=== PATIENT | male | born 1955 | race Caucasian/White ===

== ENCOUNTER → 2019-07-02 | Outpatient (CLI) | payer OTHER ==
[~2019-07-02] VITALS: Ht 175.3 cm; Wt 102.1 kg
[~2019-07-02] MED LIST: MULTIVITAMINS1 EAC7 PO; VITAMIN C500 M2 PO; VITAMIN D325 MC3 PO
--- NOTE | 2019-07-02 15:08 | P ---
[facility] [place] [address] PROCEDURE REPORT Name: CAROLIN RAE Room #: REG [facility]#: [id number] Admission: 07/02/19 Attend Phys: Rafael Logan MD Discharge: Date of : 59 Report #: [id number] THIS REPORT FOR: cc: Gavino Mejia MD, George MD Thesing,Rafael Campbell MD ~ CC: Gavino Mera MD DATE OF SERVICE: 07/02/2019 BRIEF HISTORY: The patient is a 63-year-old male for average risk screening colonoscopy. His last colonoscopy was in 2001 and he reports he was found to have diverticular disease. PREOPERATIVE DIAGNOSIS: Average risk screening colonoscopy. POSTOPERATIVE DIAGNOSES: 1. Multiple colon polyps. 2. Diverticulosis coli. 3. External hemorrhoidal tags. MEDICATIONS: Deep sedation with propofol per Anesthesia. SPECIMENS: 1. Proximal ascending colon polyps x 3. 2. Polyp at 60 cm. 3. Polyp at 30 cm. 4. Rectal polyps x 5. ESTIMATED BLOOD LOSS: 3 mL. PROCEDURE: Colonoscopy to cecum and terminal ileum with snare polypectomy and biopsy. FINDINGS: Prior to propofol sedation, procedure of colonoscopy discussed with the patient as well as potential risks and its complications. He indicates he understands and desires to proceed. DESCRIPTION OF PROCEDURE: With the patient in left lateral decubitus position, digital examination was completed, which revealed no abnormalities. Subsequently, the Olympus video colonoscope was introduced into the rectum, advanced under direct vision to the cecum. Done with minimal difficulty. Cecum was identified by the ileocecal valve and the appendiceal orifice. I was able [facility] [address] [place] [address] PROCEDURE REPORT Name: CAROLIN RAE Room #: REG [facility].#: [id number] Admission: 07/02/19 Attend Phys: Rafael Logan MD Discharge: Date of : 59 Report #: [id number] to visualize the distal segment of the terminal ileum, which was inspected and noted to be unremarkable. At that point, the scope was slowly withdrawn and careful circumferential views were obtained. The prep was excellent. Mucosa was within normal limits, normal vascular pattern, and normal light reflex. As we withdrew the scope, he was noted to have 3 diminutive polyps in the proximal ascending colon, all removed by cold biopsy forceps. Scope was further withdrawn and at 60 cm, a linear polyp of about 2 x 45 mm was seen and removed by cold snare polypectomy. I also might add there were a few scattered diverticula in proximal colon. The scope was further withdrawn and he was noted to have moderate sigmoid diverticular disease without endoscopic evidence of diverticulitis. At 30 cm, there was a polyp on a long stalk. The polyp was tubular in configuration; it was probably 8-10 mm in width and about 15-20 mm in length. It was removed without difficulty with hot snare polypectomy. Inspection of the polypectomy site revealed that a total polypectomy had been completed. There was good hemostasis and no blood was seen. The polypectomy site was momentarily observed for bleeding and none was identified. Scope was further withdrawn and in the rectum, there were a total of 5 polyps. The largest was no more than 5 mm. Four removed with a cold snare. One was removed with biopsy forceps. Upon retroflexion, no additional abnormalities were seen. In addition, the patient reports that he was told by his physician that he had a freckle on a hemorrhoid. Examination of the perianal area reveals external hemorrhoidal tags below the dentate line. One of the tags does indeed have a flat brownish area. It has a completely benign appearance. It is completely flat. Scope was withdrawn. The patient tolerated the procedure well. CONDITION OF THE PATIENT UPON DISCHARGE: Following procedure, the patient drowsy and arousable, will be discharged home when fully ambulatory. INSTRUCTIONS TO THE PATIENT AND FAMILY AT THE TIME OF DISCHARGE: Advised the patient to avoid aspirin for 2 weeks due to the hot snare polypectomy. We will follow up on the pathology. At this point in time, I suggest return in 3 years for screening colonoscopy due to the fact we found a large polyp which is consistent with an advanced adenoma. If there is evidence of malignancy within the polyp, further intervention or evaluation may be needed. We will follow up on pathology to make further recommendations. <ELECTRONICALLY SIGNED> By: Rafael Logan MD 07/02/19 1508 [id number] Rafael Logan MD /nt
--- NOTE | 2019-07-06 16:07 | PATH ---
[facility] [place] [address] PATHOLOGY RPT PROCEDURE Name: CAROLIN RAE Room #: REG [facility].#: [id number] Admission: 07/02/19 Date of : 59 Discharge: Report #: [id number] Path Case #: [id number] [facility] Accession Number: [id number] . 01 Material submitted: . PART A: colon - POLYP AT PROXIMAL ASCENDING X3. Modifiers: proximal, ascending PART B: colon - POLYP AT 60CM PART C: colon - POLYP AT 30CM PART D: rectum - POLYP AT RECTUM X5 . 01 Clinical history: . Screening . 02 Diagnosis: A. Polyp x3, proximal ascending, endoscopic biopsy: - Two fragments showing tubular adenoma without high-grade dysplasia. - One fragment showing hyperplastic changes along with a lymphoid aggregate; negative for dysplasia. . B. Polyp, at 60 cm, endoscopic biopsy: - Hyperplastic polyp. - Negative for dysplasia. . C. 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 - INVADES LAMINA PROPRIA. - Polyp stalk/base showing unremarkable mucosa. . D. Polyp x5, at rectum, endoscopic biopsy: - Hyperplastic polyp identified in all fragments sampled. - Negative for dysplasia. (IUV:pit 07/05/2019) . Surgical Pathology Cancer Case Summary . Protocol posting date: September 2016 . COLON AND RECTUM: Excisional Biopsy (Polypectomy) . Tumor Site ___ Other (specify): at 30 cm . Specimen Integrity ___ Intact [address] [address] PATHOLOGY RPT PROCEDURE Name: CAROLIN RAE Adrián Room #: [facility]#: [id number] Admission: 07/02/19 Date of : 59 Discharge: Report #: [id number] Path Case #: [id number] . Polyp Size Greatest dimension (centimeters): 2.0 cm . Polyp Configuration ___ Pedunculated with stalk . Size of Invasive Carcinoma Greatest dimension (centimeters): 0.6 cm Additional dimensions (centimeters): 0.5 cm . Histologic Type ___ Adenocarcinoma . Histologic Grade ___ G1: Well differentiated . Tumor Extension ___ Tumor invades lamina propria . Margins . Deep Margin (Stalk Margin) ___ Uninvolved by invasive carcinoma Distance of invasive carcinoma from margin (millimeters or centimeters): 4 mm . Lymphovascular Invasion ___ Not identified . Type of Polyp in Which Invasive Carcinoma Arose ___ Tubulovillous adenoma with high grade dysplasia . Additional Pathologic Findings ___ None identified . Ancillary Studies MSI markers ordered; to be reported as an addendum. P 07/05/2019 1620 Local . 02 Comment: Dr. Oxana Degroot and Dr. Lanie Benjamin have seen this case and concur with my diagnosis. . Findings of this case are discussed with Ms. Liv Jean Baptiste NP for Dr. Logan at 2:16 pm and later with Dr. Logan on 07/05/2019. . [address] [address] PATHOLOGY RPT PROCEDURE Name: CAROLIN RAE Adrián Room #: REG [facility].#: [id number] Admission: 07/02/19 Date of : 59 Discharge: Report #: [id number] Path Case #: [id number] (IUV:pit 07/05/2019) . 02 Addendum: . Per [facility] cancer committee policy, mismatch repair (MMR) protein immunohistochemical staining was performed. . Reason for testing: To evaluate for evidence of defective mismatch repair proteins. Method: Immunohistochemical staining for the presence or absence of protein expression of one or more of the following MMR protein markers: MLH1, MSH2, MSH6 and PMS2. Tumor type: Invasive adenocarcinoma with mucinous features. . Results: MLH1 - Preserved MSH2 - Preserved MSH6 - Preserved PMS2 - Preserved . Mismatch Repair Status: MMR Proficient (MMR-P) . Interpretation: . (MMR-P) All four MMR proteins are preserved within tumor cells. This suggests the presence of normal DNA mismatch repair function within the tumor and an observable defect in mismatch repair is not identified. The likelihood that this patient has an inherited germline mutation syndrome due to defective mismatch repair is reduced but not totally eliminated. If the patient has a strong personal or family history of HPNCC/Grubbs syndrome related cancers (colorectal, endometrial, gastric, ovarian, pancreatic, ureter/renal pelvis, biliary tract, brain, small bowel and Loveland-Gamaliel syndrome), consider MSI testing by PCR methodology. Suggest clinical correlation and follow up. . These test results are designed for screening purposes only and are useful tools in identifying cancer patients that are more likely to have Grubbs Syndrome related diagnoses. Tests should be interpreted in the context of clinical findings, family history and laboratory data. Abnormal IHC results for MMR protein expression are not considered diagnostic for Grubbs Syndrome. . (IUV:jesus; 07/06/2019) . . Professional services performed by [facility] at [facility], [address] [place], [place] [address], [place] [address]. Technical services performed by [facility] at [address] [place] [address], [address], [place] [address]. [address] [facility] [address] [place] [address] PATHOLOGY RPT PROCEDURE Name: CAROLIN RAE Room #: REG [facility]#: [id number] Admission: 07/02/19 Date of : 59 Discharge: Report #: [id number] Path Case #: [id number] . QTP/07/06/2019 Addendum Electronically Signed by Ijeoma Gleason MD, Pathologist . 02 Electronically signed: . Ijeoma Gleason MD, Pathologist NPI- [id number] . 01 Gross description: . A. The specimen is received in formalin, labeled "Carolin Rae, polyp at proximal ascending colon x3". Received are three segments of pale romo soft tissue ranging in size from 0.3 to 0.4 cm in maximum dimensions. The specimen is submitted entirely in cassette A1. . B. The specimen is received in formalin, labeled "Carolin Rae, polyp at 60 cm". Received are two segments of pale romo soft tissue ranging in size from 0.5 to 0.6 cm in maximum dimensions. The specimen is submitted entirely in cassette B1. . C. The specimen is received in formalin, labeled "Carolin Rae, polyp at 30 cm". Received is a polypoid segment of light brown soft tissue measuring 2.4 x 1.1 x 0.8 cm in greatest dimensions. The surgical margin is inked. The specimen is trisected perpendicular to the margin and entirely submitted in cassettes C1 through C3. . D. The specimen is received in formalin, labeled "Carolin Rae, polyp at rectum". Received are five segments of pale romo soft tissue ranging in size from 0.3 to 1.2 cm in maximum dimensions. The specimen is submitted entirely in cassette D1. (CAA; 07/03/2019) QA/[facility] 07/03/2019 1418 Local . 02 Pathologist provided ICD-10: D12.2, K63.5, C18.9, D12.6, K63.5 . 02 CPT . 975828, 361932, 955797, 129320, V53027, S55179 Specimen Comment: A courtesy copy of this report has been sent to [phone] Specimen Comment: [phone], Specimen Comment: Report sent to ,DR SHAW / DR RIVERA Performed at: [address] [place] [address] [id number] MD Ede Fuentes MD Phone: [phone] Performed at: 02 [facility] [address], [place], [place] [id number] [facility] [address] [place] [address] PATHOLOGY RPT PROCEDURE Name: CAROLIN RAE Room #: REG [facility]#: [id number] Admission: 07/02/19 Date of : 59 Discharge: Report #: [id number] Path Case #: [id number] MD Ijeoma Gleason MD Phone: [phone]
== END | disposition home or self-care (01) ==
LOC: GI 07:33
DX: Z12.11 Encounter for screening for malignant neoplasm of colon (principal); C18.7 Malignant neoplasm of sigmoid colon; D12.2 Benign neoplasm of ascending colon; D12.5 Benign neoplasm of sigmoid colon; K62.1 Rectal polyp; K57.30 Diverticulosis of large intestine without perforation or abscess without bleeding; K64.4 Residual hemorrhoidal skin tags; Z98.890 Other specified postprocedural states
CPT/HCPCS: 62110; 62900